=== PATIENT | male | born 2000 | race Hispanic/Latino ===

== ENCOUNTER 2022-01-13 19:22 | Emergency (ER) | payer OTHER ==
[~2022-01-13] VITALS: Ht 172.7 cm; Wt 82.5 kg
[2022-01-13] MEDS ORDERED: HYDROCODON-ACE1 EA10 PO (21:18)
== END 2022-01-13 22:15 | disposition home or self-care (01) ==
LOC: ED 19:22
DX: S52.512A Displaced fracture of left radial styloid process, initial encounter for closed fracture (principal); V00.131A Fall from skateboard, initial encounter
CPT/HCPCS: 29125; 73110; 99283-25; J1885